=== PATIENT | female | born 2000 | race Two or more races ===

== ENCOUNTER 2022-11-26 17:09 | Emergency (ER) | payer SELFPAY ==
[~2022-11-26] VITALS: Ht 167.6 cm; Wt 77.7 kg
[2022-11-26 18:06] LABS: Urine Bacteria FEW /hpf (None Seen); Urine Blood Negative /uL (Negative); Urine Clarity Clear (Clear); Urine Color Yellow (Yellow); Urine Protein, UAD Negative (Negative); Urine Specific Gravity 1.023 (1.001-1.035); Urine Urobilinogen Normal (Negative); Urine WBC 1 /hpf (0 - 5)
[2022-11-26 20:51] VITALS: BP 121/85; PULSE 83; RESP 16; TEMP 98.5; O2SAT 98
== END 2022-11-26 22:19 | disposition home or self-care (01) ==
LOC: ER 17:09
DX: Z32.02 Encounter for pregnancy test, result negative (principal)
CPT/HCPCS: 36415; 81001; 81025; 84702